=== PATIENT | male | born 1945 ===

== ENCOUNTER 2016-10-24 09:15 | Observation (INO) | payer MEDICARE, MEDICAID ==
[2016-10-24 09:18] VITALS: BMI 29.2
[2016-10-24 09:19] VITALS: TEMP 97.7; O2SAT 98
[2016-10-24 10:19] LABS: BASO % 0.6 % (0.0-2.0); EOS # 0.6 K/uL (0.0-0.7); EOS % 9.3 % (0.0-4.0); HEMOGLOBIN 11.9 g/dL (12.0-18.0); LYMPH # 1.7 K/uL (1.0-4.3); LYMPH % 25.8 % (20.0-40.0); MEAN CORPUSCULAR HEMOGLOBIN 30.8 pg (27.0-31.0); MEAN CORPUSCULAR HGB CONC 33.9 g/dL (33.0-37.0); MEAN PLATELET VOLUME 9.3 fl (7.2-11.7); MONO # 0.4 K/uL (0.0-0.8); MONO % 6.8 % (0.0-10.0); NEUT # 3.7 K/uL (1.8-7.0); NEUT % 57.5 % (50.0-75.0); NRBC % 0.1 % (0.0-0.0); RBC 3.86 Mil/uL (4.40-5.90); RED CELL DISTRIBUTION WIDTH 13.6 % (11.5-14.5); WHITE BLOOD COUNT 6.5 K/uL (4.8-10.8)
[2016-10-24 10:33] LABS: ALB/GLOB RATIO 1.3 (1.0-2.1); ALBUMIN 3.9 g/dL (3.5-5.0); ALT/SGPT 53 U/L (21-72); AST/SGOT 25 U/L (17-59); BLOOD UREA NITROGEN 30 mg/dl (9-20); CALCIUM 9.4 mg/dL (8.4-10.2); GFR AFRICAN-AMERICAN > 60; GFR NON-AFRICAN AMERICAN > 60
--- NOTE | 2016-10-24 10:49 | ED PDOC ---
Syncope/Near Syncope/Dizziness Time Seen by Provider: 10/24/16 09:26 Chief Complaint (Nursing): Dizziness/Lightheaded Chief Complaint (Provider): Dizziness/Lightheaded History Per: Patient History/Exam Limitations: no limitations Onset/Duration Of Symptoms: Days (x 1 month) Current Symptoms Are (Timing): Still Present Additional Complaint(s): Darien is a 71 y/o male with a past medical history of diabetes, COPD, cardiovascular disease, and anemia, who presents to the emergency department complaining of dizziness, generalized weakness, cough, and fatigue, ongoing and worsening for 1 month. He states he was told by PMD that he had anemia and was placed on vitamins, and since then symptoms have worsened. Patient denies shortness of breath, chest pain, and headache. 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 - Surgical History Surgical History: Endoscopy Other surgeries: amputation right toe, bilateral cataract surgery - Family History Family History: States: Diabetes, Hypertension - Social History Current smoker - smoking cessation education provided: Yes (Light) Alcohol: None Drugs: Denies - Immunization History Hx Tetanus Toxoid Vaccination: Yes Hx Influenza Vaccination: Yes - Home Medications Home Medications: Ambulatory Orders Medication Instructions Recorded Albuterol Sulfate [Proair Hfa] 2 puff IH Q6H PRN 08/25/14 Alprazolam [Xanax] 0.25 mg PO PRN PRN 08/25/14 Insulin Glargine,Hum.rec.anlog 30 unit SC DAILY 08/25/14 [Lantus] Losartan [Cozaar] 50 mg PO DAILY 08/25/14 Metformin Hydrochloride [Metformin] 500 mg PO BID 08/25/14 Tiotropium [Spiriva] 18 mcg IH PRN PRN 08/25/14 Zolpidem Tartrate [Ambien] 5 mg PO HS PRN 08/25/14 Clopidogrel [Plavix] 75 mg PO DAILY #0 tab 08/29/14 Oxycodone HCl/Acetaminophen 1 tab PO Q6H PRN 02/19/15 [Oxycodone HCl and Acetaminophen 325 mg-5 mg] Bacitracin OINT 1 applic TP BID #1 tube 03/15/15 Sulfamethoxazole/Trimethoprim 1 tab PO BID #10 tab 03/15/15 [Bactrim DS 800 mg-160 mg] Ciprofloxacin HCl [Ciprofloxacin] 500 mg PO BID #20 tab 05/05/15 Meclizine [Meclizine*] 25 mg PO Q8 PRN #12 tab 10/24/16 - Allergies Allergies/Adverse Reactions: Allergies Allergy/AdvReac Type Severity Reaction Status Date / Time No Known Allergies Allergy Verified 05/05/15 11:41 Review of Systems ROS Statement: Except As Marked, All Systems Reviewed And Found Negative Constitutional: Positive for: Weakness (Generalized), Other (Fatigue) Cardiovascular: Negative for: Chest Pain Respiratory: Positive for: Cough. Negative for: Shortness of Breath Neurological: Positive for: Dizziness. Negative for: Headache Physical Exam - Reviewed Nursing Documentation Reviewed: Yes Vital Signs Reviewed: Yes - Physical Exam Appears: Positive for: Non-toxic, No Acute Distress Head Exam: Positive for: ATRAUMATIC, NORMAL INSPECTION, NORMOCEPHALIC Skin: Positive for: Warm, Dry, Pallor (Moderate) Eye Exam: Positive for: EOMI, Normal appearance, PERRL ENT: Positive for: Normal ENT Inspection Neck: Positive for: Normal, Painless ROM, Supple Cardiovascular/Chest: Positive for: Regular Rate, Rhythm. Negative for: Murmur Respiratory: Positive for: Normal Breath Sounds. Negative for: Accessory Muscle Use, Respiratory Distress Gastrointestinal/Abdominal: Positive for: Normal Exam, Soft. Negative for: Tenderness Back: Positive for: Normal Inspection. Negative for: L CVA Tenderness, R CVA Tenderness, Vertebral Tenderness Extremity: Positive for: Normal ROM. Negative for: Deformity Neurologic/Psych: Positive for: Alert, Oriented. Negative for: Motor/Sensory Deficits - Laboratory Results Result Diagrams: 10/24/16 10:13 10/24/16 10:13 - ECG ECG: Positive for: Interpreted By Me, Viewed By Me ECG Rhythm: Positive for: Sinus Bradycardia (at 57 bpm with a PAC) O2 Sat by Pulse Oximetry: 98 (RA) Pulse Ox Interpretation: Normal Medical Decision Making Medical Decision Making: Time: 09:42 Initial Impression: Work up for generalized weakness, rule out worsening anemia Initial Plan: --EKG --CXR Time: 10:13 --CMP --Total CK --Troponin I --CBC --Urinalysis Time: 11:46 --Consulted with patient's PMD, Dr. Gregorio John --Hemoglobin is unchanged from prior studies --OK to discharge with follow up on Monday given symptoms have been ongoing for 1 month, there are no signs of acute blood loss, and patient is intact neurologically Time: 11:56 --NS IV 1000 ml at 1000 mls/hr --Patient admitted to ED-Observation for dizziness and need for further hydration Scribe Attestation: Documented by Susan Baca, acting as a scribe for Cory Varma III, DO Provider Scribe Attestation: All medical record entries made by the Scribe were at my direction and personally dictated by me. I have reviewed the chart and agree that the record accurately reflects my personal performance of the history, physical exam, medical decision making, and the department course for this patient. I have also personally directed, reviewed, and agree with the discharge instructions and disposition. ED OBSERVATION Date of observation admission: 10/24/16 Time of observation admission: 11:56 - Observation admission statement Patient is being placed in observation because:: dizziness and need for further hydration - Goals of Observation Goals of observation are:: Rehydration - Progress Note Progress Note: 10/24/16 Time: 13:00 --Patient is resting comfortably. Vital signs stable. Time: 13:21 Clinical Impression: Dizziness Upon provider reevaluation patient is feeling better, medically stable, and requires no further treatment in the ED at this time. Patient will be discharged with Rx for Meclizine 25 mg PO as needed for dizziness, and instructions to drink more water. Counseling was provided and all questions were answered regarding diagnosis and need for follow up with PMD in 2 days. There is agreement to discharge plan. Return if symptoms persist or worsen. Disposition - Clinical Impression Clinical Impression: Dizziness - Patient ED Disposition Is Patient to be Admitted: No Doctor Will See Patient In The: Office Counseled Patient/Family Regarding: Diagnosis, Need For Followup, Rx Given - Disposition Disposition: Routine/Home Disposition Time: 13:21 Condition: STABLE
[2016-10-24] MEDS ORDERED: Sodium Chloride 0.9% 1,000 ML IV STA (11:45)
--- NOTE | 2016-10-24 13:29 | RAD ---
HISTORY: weakness COMPARISON: None available. TECHNIQUE: Chest PA and lateral FINDINGS: LUNGS: 2.6 x 0.8 cm ovoid density in the right mid lung zone of unclear significance. Right lateral pleural thickening. Probable bilateral pleural effusions. No definite pneumothorax. Please note that chest x-ray has limited sensitivity for the detection of pulmonary masses. CARDIOVASCULAR: Heart size appears within normal limits. OSSEOUS STRUCTURES: Degenerative changes including confluent anterior osteophyte formation. Osseous demineralization. VISUALIZED UPPER ABDOMEN: Unremarkable. OTHER FINDINGS: None. IMPRESSION: 2.6 x 0.8 cm ovoid density in the right mid lung zone of unclear significance. Recommend CT of the chest for further evaluation. Right lateral pleural thickening. Probable bilateral pleural effusions. Study marked for PA review.
[2016-10-24 13:38] VITALS: BP 138/69; PULSE 79; RESP 16
[2016-10-24 14:17] LABS: URINE BILIRUBIN NEGATIVE (NEGATIVE); URINE BLOOD NEGATIVE (NEGATIVE); URINE CLARITY CLEAR (Clear); URINE COLOR YELLOW (YELLOW); URINE GLUCOSE (UA) 150 mg/dL (Normal); URINE LEUKOCYTE ESTERASE NEG Leu/uL (Negative); URINE NITRATE NEGATIVE (NEGATIVE); URINE PROTEIN 100 mg/dL (NEGATIVE); URINE UROBILINOGEN 0.2-1.0 mg/dL (0.2-1.0)
--- NOTE | 2016-10-24 20:56 | CARD ---
APPROVED REPORT EKG Measurement Heart [id number] MD [id number] <Conclusion> Sinus bradycardia with premature atrial complexes Minimal voltage criteria for LVH, may be normal variant Borderline ECG
== END 2016-10-24 13:29 | disposition home or self-care (01) ==
LOC: H.ER 09:30 → H.EROBSV 11:56
PROVIDERS: ADMIT Emergency Medicine; ATTEND Emergency Medicine
DX: R42 Dizziness and giddiness (principal); D64.9 Anemia, unspecified; E11.9 Type 2 diabetes mellitus without complications; J44.9 Chronic obstructive pulmonary disease, unspecified; E78.00 Pure hypercholesterolemia, unspecified; E78.5 Hyperlipidemia, unspecified; I10 Essential (primary) hypertension; F32.9 Major depressive disorder, single episode, unspecified; F17.200 Nicotine dependence, unspecified, uncomplicated; I25.10 Atherosclerotic heart disease of native coronary artery without angina pectoris; Z79.02 Long term (current) use of antithrombotics/antiplatelets; Z79.899 Other long term (current) drug therapy; Z83.3 Family history of diabetes mellitus; Z79.84 Long term (current) use of oral hypoglycemic drugs
CPT/HCPCS: 71020; 80053; 81003; 82550; 84484; 85025; 93005; 96360; 99283; G0378; J7040

== ENCOUNTER 2017-08-17 12:56 | Emergency (ER) | payer MEDICARE, OTHER ==
[2017-08-17 12:57] VITALS: BMI 29.2
[2017-08-17] MEDS ORDERED: Tetanus/Diphtheria Toxoids 0.5 ml Syringe IM ONE ×2 (13:30→13:55)
--- NOTE | 2017-08-17 13:48 | ED PDOC ---
HPI: Skin/Bite Injury Time Seen by Provider: 08/17/17 13:14 Chief Complaint (Nursing): Bite Past Medical History Vital Signs: Last Vital Signs Temp 97 F L 08/17/17 12:59 Pulse 76 08/17/17 12:59 Resp 16 08/17/17 12:59 BP 142/69 08/17/17 12:59 Pulse Ox 99 08/17/17 12:59 - Medical History PMH: Anemia, Asthma, COPD, Depression (1 YEAR AGO), Diabetes, HTN, Hypercholesterolemia, Hyperlipidemia, Peripheral Edema (SOMETIMES) Denies: Anxiety, Arthritis, CHF, HIV, Hypothyroidism, Chronic Kidney Disease , Rheumatoid Arthritis - Surgical History Surgical History: Endoscopy - Family History Family History: States: Diabetes, Hypertension - Immunization History Hx Tetanus Toxoid Vaccination: Yes Hx Influenza Vaccination: Yes - Home Medications Home Medications: Ambulatory Orders Medication Instructions Recorded Albuterol Sulfate [Proair Hfa] 2 puff IH Q6H PRN 08/25/14 Alprazolam [Xanax] 0.25 mg PO PRN PRN 08/25/14 Insulin Glargine,Hum.rec.anlog 30 unit SC DAILY 08/25/14 [Lantus] Losartan [Cozaar] 50 mg PO DAILY 08/25/14 Metformin Hydrochloride [Metformin] 500 mg PO BID 08/25/14 Tiotropium [Spiriva] 18 mcg IH PRN PRN 08/25/14 Zolpidem Tartrate [Ambien] 5 mg PO HS PRN 08/25/14 Clopidogrel [Plavix] 75 mg PO DAILY #0 tab 08/29/14 Oxycodone HCl/Acetaminophen 1 tab PO Q6H PRN 02/19/15 [Oxycodone HCl and Acetaminophen 325 mg-5 mg] Bacitracin OINT 1 applic TP BID #1 tube 03/15/15 Sulfamethoxazole/Trimethoprim 1 tab PO BID #10 tab 03/15/15 [Bactrim DS 800 mg-160 mg] Ciprofloxacin HCl [Ciprofloxacin] 500 mg PO BID #20 tab 05/05/15 Meclizine [Meclizine*] 25 mg PO Q8 PRN #12 tab 10/24/16 Amoxicillin/Clavulanate [Augmentin 1 tab PO BID #20 tab 08/17/17 875 MG-125 MG] - Allergies Allergies/Adverse Reactions: Allergies Allergy/AdvReac Type Severity Reaction Status Date / Time No Known Allergies Allergy Verified 08/17/17 12:58 - ECG O2 Sat by Pulse Oximetry: 99 Disposition - Clinical Impression Clinical Impression: Dog bite, Tetanus toxoid vaccination administered at current visit - Patient ED Disposition Is Patient to be Admitted: No Counseled Patient/Family Regarding: Diagnosis, Need For Followup, Rx Given - Disposition Disposition: Routine/Home Disposition Time: 13:47 Condition: GOOD Prescriptions: Amoxicillin/Clavulanate [Augmentin 875 MG-125 MG] 1 tab PO BID #20 tab Instructions: Skin Abrasions
--- NOTE | 2017-08-17 13:51 | ED PDOC ---
HPI: Skin/Bite Injury Time Seen by Provider: 08/17/17 13:14 Chief Complaint (Nursing): Bite Chief Complaint (Provider): Bite History Per: Patient History/Exam Limitations: no limitations Current Symptoms Are (Timing): Still Present Additional Complaint(s): 72 y/o male with a pmhx of diabetes presenting for evaluation of dog bite. Patient states he was bit by his dog on his left 2nd and 3rd toes last night. States he cleaned the wound and applied topical antibiotics. States he is presenting to ER because tetanus is not UTD. Reports dog is UTD on vaccines. PMD: Gregorio John Past Medical History Reviewed: Historical Data, Nursing Documentation, Vital Signs Vital Signs: Last Vital Signs Temp 98.9 F 08/17/17 14:33 Pulse 64 08/17/17 14:33 Resp 15 08/17/17 14:33 BP 131/81 08/17/17 14:33 Pulse Ox 97 08/17/17 14:33 - Medical History PMH: Anemia, Asthma, COPD, Depression (1 YEAR AGO), Diabetes, HTN, Hypercholesterolemia, Hyperlipidemia, Peripheral Edema (SOMETIMES) Denies: Anxiety, Arthritis, CHF, HIV, Hypothyroidism, Chronic Kidney Disease , Rheumatoid Arthritis - Surgical History Surgical History: Endoscopy - Family History Family History: States: Diabetes, Hypertension - Living Arrangements Living Arrangements: Alone - Immunization History Hx Tetanus Toxoid Vaccination: Yes Hx Influenza Vaccination: Yes - Home Medications Home Medications: Ambulatory Orders Medication Instructions Recorded Albuterol Sulfate [Proair Hfa] 2 puff IH Q6H PRN 08/25/14 Alprazolam [Xanax] 0.25 mg PO PRN PRN 08/25/14 Insulin Glargine,Hum.rec.anlog 30 unit SC DAILY 08/25/14 [Lantus] Losartan [Cozaar] 50 mg PO DAILY 08/25/14 Metformin Hydrochloride [Metformin] 500 mg PO BID 08/25/14 Tiotropium [Spiriva] 18 mcg IH PRN PRN 08/25/14 Zolpidem Tartrate [Ambien] 5 mg PO HS PRN 08/25/14 Clopidogrel [Plavix] 75 mg PO DAILY #0 tab 08/29/14 Oxycodone HCl/Acetaminophen 1 tab PO Q6H PRN 02/19/15 [Oxycodone HCl and Acetaminophen 325 mg-5 mg] Bacitracin OINT 1 applic TP BID #1 tube 03/15/15 Sulfamethoxazole/Trimethoprim 1 tab PO BID #10 tab 03/15/15 [Bactrim DS 800 mg-160 mg] Ciprofloxacin HCl [Ciprofloxacin] 500 mg PO BID #20 tab 05/05/15 Meclizine [Meclizine*] 25 mg PO Q8 PRN #12 tab 10/24/16 Amoxicillin/Clavulanate [Augmentin 1 tab PO BID #20 tab 08/17/17 875 MG-125 MG] - Allergies Allergies/Adverse Reactions: Allergies Allergy/AdvReac Type Severity Reaction Status Date / Time No Known Allergies Allergy Verified 08/17/17 12:58 Physical Exam - Reviewed Nursing Documentation Reviewed: Yes Vital Signs Reviewed: Yes - Physical Exam Appears: Positive for: Non-toxic, No Acute Distress Head Exam: Positive for: ATRAUMATIC, NORMAL INSPECTION, NORMOCEPHALIC Skin: Positive for: Normal Color, Warm, Dry Eye Exam: Positive for: Normal appearance Neck: Positive for: Normal Respiratory: Negative for: Respiratory Distress Extremity: Positive for: Other (abrasion present on the proximal dorsal 2nd and 3rd digits) Neurologic/Psych: Positive for: Alert - ECG O2 Sat by Pulse Oximetry: 99 (RA) Pulse Ox Interpretation: Normal Medical Decision Making Medical Decision Makin:15 Plan: --Tetanus --Reevaluation Scribe Attestation: Documented by Cristobal Kendrick, acting as a scribe for Elaine Bae PA-C. Provider Scribe Attestation: All medical record entries made by the Scribe were at my direction and personally dictated by me. I have reviewed the chart and agree that the record accurately reflects my personal performance of the history, physical exam, medical decision making, and the department course for this patient. I have also personally directed, reviewed, and agree with the discharge instructions and disposition. Disposition - Clinical Impression Clinical Impression: Dog bite, Tetanus toxoid vaccination administered at current visit - Patient ED Disposition Is Patient to be Admitted: No - Disposition Disposition: Routine/Home Disposition Time: 13:47 Condition: GOOD Prescriptions: Amoxicillin/Clavulanate [Augmentin 875 MG-125 MG] 1 tab PO BID #20 tab Instructions: Skin Abrasions Forms: [facility] ([place])
[2017-08-17 14:34] VITALS: BP 131/81; PULSE 64; RESP 15; TEMP 98.9
[2017-08-17 23:26] VITALS: O2SAT 99
== END 2017-08-17 14:33 | disposition home or self-care (01) ==
LOC: H.ER 12:56
DX: S60.512A Abrasion of left hand, initial encounter (principal); W54.0XXA Bitten by dog, initial encounter; Y92.89 Other specified places as the place of occurrence of the external cause; E11.9 Type 2 diabetes mellitus without complications; E78.00 Pure hypercholesterolemia, unspecified; F32.9 Major depressive disorder, single episode, unspecified; I10 Essential (primary) hypertension; J44.9 Chronic obstructive pulmonary disease, unspecified; Z79.4 Long term (current) use of insulin